=== PATIENT | female | born 1980 | race Caucasian/White ===

== ENCOUNTER 2019-09-22 12:01 | Emergency (ER) | payer OTHER, MEDICAID, SELFPAY ==
[2019-09-22 12:10] VITALS: BP 109/67; PULSE 98; RESP 15; TEMP 37.5; O2SAT 96; BMI 23.0
--- NOTE | 2019-09-22 12:30 | ED_ITS ---
HPI - URI/Sore Throat <OXANA Adler - Last Filed: 09/22/19 18:24> General Chief Complaint: Upper Respiratory Symptoms Stated Complaint: Body aches, chills, productive cough, headache Time Seen by Provider: 09/22/19 12:05 Source: patient Mode of arrival: Ambulatory Limitations: no limitations History of Present Illness HPI Narrative: 39yo female with history of homelessness, methamphetamine use, current smoker, and current marijuana user, presents to the emergency department complaining of chills, subjective fever, muscle aches, dry cough, and rhinorrhea starting yesterday. She states she has been staying in hotel but is often homeless. She occasionally states with her mother who was also tested for COVID-19, pending results at this time. Patient denies any shortness of breath, abdominal pain, nausea, vomiting, diarrhea, chest pain, or any other concerns. Patient denies any history of asthma or any major medical issues, denies allergies other than tramadol. Related Data Previous Rx's Medication Instructions Recorded oseltamivir [Tamiflu] 75 mg PO BID 5 Days #10 cap 09/22/19 Allergies Allergy/AdvReac Type Severity Reaction Status Date / Time tramadol [From Ultram] Allergy Verified 09/22/19 12:14 Review of Systems <OXANA Adler - Last Filed: 09/22/19 18:24> Review of Systems Narrative: REVIEW OF SYSTEMS: GENERAL: Reports chills, see HPI. HENT: No head trauma or hearing loss. EYES: No loss of vision, double vision, eye pain, irritation or discharge. CARDIOVASCULAR: No chest pain or syncope. RESPIRATORY: No shortness of breath. Reports dry cough, see HPI. GASTROINTESTINAL: No nausea, vomiting, diarrhea, or constipation. : No dysuria. MUSCULOSKELETAL: No weakness or injury. INTEGUMENTARY: No rash, lesions, or pruritus. NEURO: No memory loss, or confusion. Patient History <OXANA Adler - Last Filed: 09/22/19 18:24> Medical History Methadone use (Acute) Social History Smoking Status: Unknown if ever smoked Smoking Status: Unknown if ever smoked alcohol intake frequency: holidays/special occasions only Substance Use Type: does not use Exam <OXANA Adler - Last Filed: 09/22/19 18:24> Initial Vital Signs Initial Vital Signs: Vital Signs Temperature 99.5 F 09/22/19 12:10 Pulse Rate 98 H 09/22/19 12:10 Respiratory Rate 15 09/22/19 12:10 Blood Pressure 109/67 09/22/19 12:10 Pulse Oximetry 96 09/22/19 12:10 PHYSICAL EXAMINATION: GENERAL: Well groomed, alert, and cooperative. Discharge of old, poor hygiene. Answers questions promptly and appropriately. Vital signs noted. HENT: Normocephalic, atraumatic. Ear canals patent. TMs intact without mucus or erythema. Oropharynx with slight erythema, no exudate. Tonsils are not present. EYES: PERRLA, conjunctiva pink, sclera white, no periorbital swelling. No discharge. CHEST: Normal to inspection and without deformities. CARDIOVASCULAR: S1 and S2 sounds normal. Regular rate and rhythm, no murmurs, clicks, or bruits. RESPIRATORY: Normal respiratory rate, trachea midline, airway patent. No stridor, nasal flaring or accessory muscle use. Able to speak in full sentences. Lungs with occasional scattered rhonchi that clear with cough, no wheezes or crackles. MUSCULOSKELETAL: Normal gait and coordination. Equal tone and mass bilaterally. EXTREMITIES: Moves all extremities. SKIN: Warm, dry, soft, appropriate color for ethnicity. No lesions, rashes, or wounds to visualized areas. NEURO: Alert and Oriented X 3. Good coordination. No ataxia or cognitive issues. PSYCH: Appropriate affect and mood. <Emily Martinez MD - Last Filed: 09/28/19 07:03> Initial Vital Signs Initial Vital Signs: Vital Signs Temperature 99.5 F 09/22/19 12:10 Pulse Rate 98 H 09/22/19 12:10 Respiratory Rate 15 09/22/19 12:10 Blood Pressure 109/67 09/22/19 12:10 Pulse Oximetry 96 09/22/19 12:10 Course <OXANA Adler - Last Filed: 09/22/19 18:24> Course Course Narrative: Patient was given Ibuprofen to help with body aches in the ED. Orders Ordered: Discontinued Medications Ibuprofen (Advil) 400 mg PO NOW ONE Stop: 09/22/19 12:29 Last Admin: 09/22/19 13:58 Dose: 400 mg Documented by: BRIANA Vital Signs Vital signs: Vital Signs - 8 hr 09/22/19 12:10 09/22/19 15:05 09/22/19 15:37 Temperature 99.5 F Pulse Rate 98 H 82 85 Respiratory Rate 15 16 20 Blood Pressure 109/67 103/68 Blood Pressure [Left Arm] 91/52 L Pulse Oximetry 96 95 98 <Emily Martinez MD - Last Filed: 09/28/19 07:03> Orders Ordered: Discontinued Medications Ibuprofen (Advil) 400 mg PO NOW ONE Stop: 09/22/19 12:29 Last Admin: 09/22/19 13:58 Dose: 400 mg Documented by: BRIANA Vital Signs Vital signs: Vital Signs - 8 hr 09/22/19 12:10 09/22/19 15:05 09/22/19 15:37 Temperature 99.5 F Pulse Rate 98 H 82 85 Respiratory Rate 15 16 20 Blood Pressure 109/67 103/68 Blood Pressure [Left Arm] 91/52 L Pulse Oximetry 96 95 98 MDM - URI/Sore Throat <OXANA Adler - Last Filed: 09/22/19 18:24> Medical Records Attestation: I reviewed the patient's medical records. Lab Data Attestation: I reviewed the patient's lab results. Labs: Lab Results 09/22/19 09/22/19 Range/Units 14:08 14:08 COVID-19 PCR Not detected (Not Detected) Influenza A (RT-PCR) Flu a positive H (NEGATIVE) Influenza B (RT-PCR) Flu b negative (NEGATIVE) Imaging Data Chest x-ray: Radiologist's Impression: [address] [address] XRay Report Signed Patient: Juliann Bardales RMR#: [id number] : 1980Acct:[id number] Age/Sex: 39 / FDate of Service: 09/22/19 Loc: ED Accession Number: [id number] Procedure: XR chest 1V Ordering Provider: Toshia Jones PROCEDURE: XR CHEST 1V INDICATIONS: Cough, fever, TECHNIQUE: One view of the chest was acquired. COMPARISON: [facility], CHEST 2 VIEW, 11/15/2015, 23:51. FINDINGS: Surgical changes and devices: None. Lungs and pleura: Lungs are clear. No pleural effusions or pneumothorax. Mediastinum: Mediastinal contours appear normal. Heart size is normal. Bones and chest wall: No suspicious bony lesions. Overlying soft tissues appear unremarkable. IMPRESSION: No acute disease Dictated by: Andrez Crandall M.D. on 09/22/2019 at 12:47 Approved by: Andrez Crandall M.D. on 09/22/2019 at 12:48 MDM Narrative Medical decision making narrative: 39-year-old female with history of homelessness, presenting to the emergency department for body aches, cough, fatigue, and rhinorrhea. Chest x-ray was negative for any concerning lung involvement. Influenza was positive for influenza A, Tamiflu as prescribed. Patient was swabbed for COVID-19 due to symptoms and risk factors, and 20% rate of co-infection. Patient reported decreased symptoms after administration of ibuprofen. She was encouraged to remain isolated away from people for the next 14 days. Less likely severe etiology due to negative chest x-ray, normal lung examination, non-remarkable vital signs, and lack of other concerning symptoms. Less likely other infectious etiology due to reports of cough and rhinorrhea with lack of abdominal pain, dysuria, or any other concerns. ED precautions given for new or worsening symptoms. <Emily Martinez MD - Last Filed: 09/28/19 07:03> Lab Data Labs: Lab Results 09/22/19 09/22/19 Range/Units 14:08 14:08 COVID-19 PCR Not detected (Not Detected) Influenza A (RT-PCR) Flu a positive H (NEGATIVE) Influenza B (RT-PCR) Flu b negative (NEGATIVE) Discharge Plan Departure Patient Disposition: Home Clinical Impression: Influenza A Discharge Date/Time: 09/22/19 15:41 Instructions: DI for Influenza -- Adult Activity Restrictions/Additional Instructions: Thank you for entrusting me with your care today. As discussed, your positive for influenza A. You have been prescribed Tamiflu, this will help reduce the duration of UR illness. You have also been tested for COVID-19. This test may take 4-5 days for results to return, we will call you with these results. Please remain in quarantine with self isolation at home for 7 days or 3 days after your symptoms have completely resolved, whichever is longer. Clean all surfaces, where a mask, cover cough, and wash hands frequently. Drink lots of fluids, take Tylenol for fever, get extra rest, clean all surfaces, cover your cough, wash your hands frequently, and avoid sharing any personal items. If you need to seek medical care, please call the clinic or the emergency department before your arrival. Return emergency department for any new or worsening symptoms such as severe shortness of breath, chest pain, uncontrollable vomiting, high fevers that do not decreased with Tylenol ibuprofen, or any other concerns. Prescriptions: New oseltamivir [Tamiflu] 75 mg capsule 75 mg PO BID 5 Days Qty: 10 RF: 0
[2019-09-22] MEDS: IBUPROFEN 400 MG TABLET PO (13:58)
[2019-09-22 14:39] LABS: Influenza A - CEPHEID Flu A POSITIVE (NEGATIVE); Influenza B - CEPHEID Flu B NEGATIVE (NEGATIVE)
[2019-09-22 15:05] VITALS: BP 91/52; PULSE 82; RESP 16; O2SAT 95
[2019-09-22 15:37] VITALS: BP 103/68; PULSE 85; RESP 20; O2SAT 98
[2019-09-23 23:25] LABS: COVID19 Sendout Not Detected (Not Detected)
== END 2019-09-22 15:41 | disposition home or self-care (01) ==
PROVIDERS: Emergency Provider Nurse Practitioner
DX: J10.1 Influenza due to other identified influenza virus with other respiratory manifestations (principal); R50.9 Fever, unspecified; R05 Cough
CPT/HCPCS: 71045; 87502; 87635; 99283